=== PATIENT | male | born 1955 | race Caucasian/White ===

== ENCOUNTER → 2020-02-03 | Outpatient (CLI) | payer BC ==
--- NOTE | 2020-02-03 09:21 | XR ---
EXAMINATION TYPE: XR chest 2V DATE OF EXAM: 02/03/2020 COMPARISON: 03/03/2014 TECHNIQUE: PA and lateral views submitted. HISTORY: Chest pain FINDINGS: The lungs are clear and there is no pneumothorax, pleural effusion, or focal pneumonia. No overt fa ilure. Biapical pleural thickening. Reduced inspiration. Hypertrophic and degenerative change of the spine. IMPRESSION: 1. No acute process.
== END | disposition home or self-care (01) ==
LOC: RADXRMAIN 08:56
PROVIDERS: ATTEND Otolaryngology
DX: R07.89 Other chest pain (principal)
CPT/HCPCS: 71046

== ENCOUNTER 2020-12-14 10:32 | Day surgery (SDC) | payer BC ==
[2020-12-12 10:53] VITALS: BMI 28.7
[~2020-12-14 10:32] MED LIST: LACTATED RINGERS 1,000 ML IV SCH
[2020-12-14 11:10] VITALS: TEMP 98.1
[2020-12-14] MEDS ORDERED: LIDOCAINE 1% (10MG/ML) FOR IV START INTRADERMA ONE (11:11)
[2020-12-14] MEDS ORDERED: PROPOFOL 10 MG/ML 20 ML VIAL IV ONE (12:06)
[2020-12-14] MEDS ORDERED: GLYCOPYRROLATE 0.2 MG/ML 2 ML VIAL ONE (12:06)
[2020-12-14] MEDS ORDERED: LIDOCAINE 1% INJ 10MG/ML (20 ML MDV) ONE (12:06)
--- NOTE | 2020-12-14 12:28 | P.PCN ---
Date of Procedure: 12/14/20 Procedure(s) Performed: Brief history: Patient is a pleasant 65-year-old white male scheduled for an elective upper endoscopy as well as colonoscopy as a part of evaluation of GERD/screening for colorectal neoplasia. Procedure performed: Esophagogastroduodenoscopy with biopsy Colonoscopy Preoperative diagnosis: GERD Screening for colon cancer Anesthesia: MAC Procedure: After informed consent was obtained from the patient was brought into the endoscopy unit and IV sedation was administered by anesthesia under continuous monitoring. Initially upper endoscopy was done. The Olympus GF 160 video endoscope was inserted inserted into the mouth and esophagus intubated without any difficulty and was gradually advanced into the stomach and duodenum and carefully examined. The bulb and second part of the duodenum appeared normal. The scope was then withdrawn into the stomach adequately insufflated with air and upon careful examination the antrum and body, cardia and fundus appeared normal. The scope was then withdrawn into the esophagus. The GE junction was located at 40 cm to the incisors. It appeared regular with no erythema erosions or ulcerations. Rest of the esophagus appeared normal. Biopsies were done from the distal esophagus to rule out a reflux esophagitis Patient tolerated the procedure well. At this time the patient continued to remain sedation. Initial digital rectal examination was normal. Olympus CF 160 video colonoscope was then inserted into the rectum and gradually advanced to the cecum without any difficulty. Careful examination was performed as the scope was gradually being withdrawn. The prep was excellent. The cecum, ascending colon, transverse colon, descending colon, sigmoid colon and rectum appeared normal. At her sigmoid diverticulosis. Retroflexion was performed in the rectum and grade 2 internal hemorrhoids were noted. Patient tolerated the procedure well. Impression: 1. Upper endoscopy revealed normal-appearing esophagus with no evidence of esophagitis or gastritis 2. Colonoscopy revealed scattered sigmoid diverticulosis and grade 2 internal hemorrhoids Recommendations: Findings of this examination were discussed with the patient as well as his family. He was advised to continue his current medications. Follow with the biopsy results. Have a repeat screening colonoscopy in 10 years.
[2020-12-14 12:52] VITALS: BP 115/78; PULSE 55; RESP 18
== END 2020-12-14 13:06 | disposition home or self-care (01) ==
LOC: ORWHC2ENDO 10:32
PROVIDERS: ATTEND Internal Medicine Gastroenterology
DX: Z12.11 Encounter for screening for malignant neoplasm of colon (principal); K21.9 Gastro-esophageal reflux disease without esophagitis; K57.30 Diverticulosis of large intestine without perforation or abscess without bleeding; E78.5 Hyperlipidemia, unspecified; K64.1 Second degree hemorrhoids; Z79.899 Other long term (current) drug therapy
CPT/HCPCS: 88305; 43239; J2001; J2704; G0121

== ENCOUNTER 2021-01-30 07:44 | Day surgery (SDC) | payer BC ==
[~2021-01-30 07:44] MED LIST changes: +ALPRAZolam 0.25 MG TAB PO PRN; +ALPRAZolam 0.5 MG TAB PO PRN; +ASPIRIN 325 MG TAB PO STA; +ATORVASTATIN 80 MG TAB PO STA; +HEPARIN SODIUM,PORCINE 10,000 UNIT in SODIUM CHLORIDE 0.9% 1,000 ML IRRIGATION PRN; +HEPARIN SODIUM,PORCINE 2,500 UNIT in SODIUM CHLORIDE 0.9% 250 ML IRRIGATION PRN; -LACTATED RINGERS 1,000 ML IV SCH; +NITROGLYCERIN SL TABS 0.4 MG TAB SUBLINGUAL PRN; +SODIUM CHLORIDE 0.9% 1,000 ML in EMPTY BAG 1 BAG IV ONE
[2021-01-30] MEDS ORDERED: SODIUM CHLORIDE 0.9% 1,000 ML IV ONE (08:07)
[2021-01-30] MEDS ORDERED: LIDOCAINE 1% INJ 10MG/ML (20 ML MDV) ONE (08:25)
[2021-01-30] MEDS ORDERED: fentaNYL (PF) 50 MCG/ML 2 ML AMP ONE (08:26)
[2021-01-30] MEDS ORDERED: fentaNYL (PF) 50 MCG/ML 2 ML AMP IV ONE (08:54)
[2021-01-30] MEDS: MIDAZOLAM 2 MG/2 ML VIAL IV ONE ×2 (08:54→09:00)
[2021-01-30] MEDS ORDERED: LIDOCAINE 1% INJ 10MG/ML (20 ML MDV) SQ ONE (08:55)
[2021-01-30] MEDS ORDERED: HEPARIN SODIUM 1,000 UN/ML (10ML VL) ONE (09:19)
[2021-01-30] MEDS: HEPARIN SODIUM 1,000 UN/ML (10ML VL) IV ONE ×2 (09:20→09:33)
[2021-01-30] MEDS ORDERED: PRASUGREL 10 MG TAB ONE (09:22)
[2021-01-30] MEDS ORDERED: PRASUGREL 10 MG TAB PO ONE (09:30)
[2021-01-30] MEDS: NITROGLYCERIN 1000MCG/10ML SYRINGE INTRAARTER ONE ×2 (09:32→09:42)
[2021-01-30] MEDS ORDERED: IOPAMIDOL-370 125ML BTL INJ ONE (09:48)
[2021-01-30] MEDS ORDERED: IOPAMIDOL-370 100ML BTL INJ ONE (10:01)
--- NOTE | 2021-01-30 10:10 | CC ---
CARDIAC CATHETERIZATION REPORT PROCEDURE: Cardiac catheterization. REFERRING PHYSICIAN: Dr. María Horvath. INDICATION: Exertional shortness of breath with abnormal stress test showing ischemia in LAD distribution. PROCEDURE NOTE: Obtaining informed consent, left heart catheterization, coronary angiogram are performed via the right femoral artery using standard [place] catheters. Patient tolerated the procedure well without any obvious immediate complications. He received moderate conscious sedation. Total sedation time was 13 minutes. FINDINGS: HEMODYNAMICS: Left ventricular end-diastolic pressure is 8 to 12 mm. There is no gradient across the aortic valve. LEFT VENTRICULOGRAM: Left ventriculogram is not performed. ANGIOGRAPHIC DATA: The left main coronary artery: Left main coronary artery is a normal-sized vessel and is free of stenosis. Divides into left anterior descending coronary artery and circumflex coronary artery. LAD shows a focal area of stenosis involving the proximal LAD. There is a large caliber diagonal branch that comes off the distal end of this stenosis. Circumflex coronary artery is a dominant vessel and is free of significant disease. Right coronary artery is a small nondominant vessel and is free of significant disease. CONCLUSIONS: Severe single-vessel coronary artery disease as described above. PLAN: I am going to have Dr. Juarez, the on-call senior production manager, review the angiographic data and decide on whether to do catheter based revascularization or refer the patient for two-vessel bypass. MMODL / IJN: [id number] /
[2021-01-30] MEDS ORDERED: ATROPINE SULFATE 0.1 MG/ML 10ML SYRINGE IV PRN ×2 (10:31→11:35)
[2021-01-30] MEDS ORDERED: ZOLPIDEM 5 MG TAB PO PRN ×2 (10:31→11:35)
[2021-01-30] MEDS ORDERED: MAG HYDROX/AL HYDROX/SIMETH 30 ML CUP PO PRN ×2 (10:31→11:35)
[2021-01-30] MEDS ORDERED: RX INFO: IV CONTRAST WAS GIVEN 1 EACH MISC MISCELLANE PRN ×2 (10:31→11:35)
[2021-01-30] MEDS ORDERED: NITROGLYCERIN SL TABS 0.4 MG TAB SUBLINGUAL PRN ×2 (10:31→11:35)
[2021-01-30] MEDS ORDERED: SODIUM CHLORIDE 0.9% 1,000 ML IV SCH (11:45)
[2021-01-30] MEDS: SODIUM CHLORIDE 0.9% 1,000 ML IV SCH (13:07)
--- NOTE | 2021-01-30 13:25 | LTR ---
01/30/2021 RE: Marquis Merino Dear María: I performed cardiac catheterization on Marquis Merino. A detailed catheterization note is enclosed for your records. In brief, his cardiac catheterization revealed severe focal stenosis involving proximal LAD and patient will undergo angioplasty with stent placement of the same. Thank you for allowing me to participate in the care of this pleasant gentleman. Sincerely, MD GERALDO Veras / [place]: [id number] /
[2021-01-30 14:34] VITALS: BMI 26.9
--- NOTE | 2021-01-30 18:16 | P.PRCINT ---
Percutaneous Coronary Int. - Percutaneous Coronary Intervention Percutaneous Coronary Intervention: PROCEDURES PERFORMED: Left coronary angiography, PCI of proximal diagonal 1 with a 2.5 x 12mm Xience SARAH, PCI proximal LAD with a 3.0 x 15mm Xience SARAH, post dilated with a 4.0 NC balloon, Angioseal closure INDICATION: Abnormal stress test, FISH HISTORY: Patient is a pleasant 65 year old male with history of HTN, HLD who has been having increased FISH over the last 2-3 months with a stress test showing anterior ischemia. Patient had a diagnositic heart catheterization performed by Dr Akhtar which showed obstructive disease of diagonal 1 and proximal LAD and mild disease of circumflex and nondominant RCA. CONSENT:I have discussed the risks, benefits and alternative therapies for the above-mentioned procedure and for both sedation/analgesia as well as necessary blood product administration, if indicated, as they pertain to this patient. The patient has indicated understanding and acceptance of the risks and procedures discussed. PROCEDURE: After the risks, benefits and alternatives of the above mentioned procedure explained in detail with the patient, informed consent was obtained. Patient had already been taken to the catheterization lab and prepped and draped in usual fashion. A 6-Hebrew sheath had already been placed in the right femoral artery. The decision was made to perform PCI of LAD and diagonal 1 branch. A 6Fr CLS 4.0 guide catheter was used to engage the left main. A 0.014 wire was placed in the distal LAD and a second 0.014 BMW in the distal diagonal 1 branch. Balloon angioplasty was performed of the diagonal 1 branch and proximal LAD lesion with a 2.25 x 12mm balloon. Next a 2.5 x 12mm Xience SARAH was placed in the proximal diagonal 1 with approximately 1-2mm distal to the origin which seemed to only have mild disease. Next balloon angioplasty was performed of the proximal LAD with a 2.75 x 12mm balloon. Next a 3.0 x 15mm Xience SARAH was placed in the proximal LAD, overlapping the diagonal 1 branch however without any impingement of the diagonal 1 branch. Next the proximal portion of the LAD stent was post dilated with a 4.0 x 8mm NC balloon. Final angiograms were performed. Pre intervention there was a 80% diagonal 1 stenosis and 95% LAD stenosis with JOSE 3 flow in both and post intervention there was 0% LAD stenosis and < 10% residual diagonal 1 stenosis without any dissection. Right femoral angiogram showed anatomy adequate for closure device and a 6Fr Angioseal was placed with hemostasis achieved. The patient tolerated the procedure well. Patient was transported back to the post catheterization holding area in stable condition. Conscious Sedation: Patient was monitored under the direct supervision of vision of myself for conscious sedation using Versed and fentanyl for a total duration of 44 minutes HEMODYNAMICS: Ao: 142/78 SELECTIVE CORONARY ARTERIOGRAPHY: LEFT MAIN: The left main is a large caliber vessel which bifurcates into the LAD and circumflex. There is no significant stenosis. LEFT ANTERIOR DESCENDING CORONARY ARTERY: LAD is a large caliber vessel which wraps around to the apex. There is a proximal 95% LAD stenosis and a proximal diagonal 1 80% stenosis. Otherwise there are mild luminal irregularities. LEFT CIRCUMFLEX CORONARY ARTERY: Left circumflex is a large caliber vessel with mild luminal irregularities. It is the dominant vessel. RIGHT CORONARY ARTERY: The right coronary artery was not imaged however was nondominant. FINAL IMPRESSION: 1. CAD as described above with 95% LAD and 80% diagonal 1 stenosis, s/p PCI of proximal diagonal 1 with a 2.5 x 12mm Xience SARAH, PCI proximal LAD with a 3.0 x 15mm Xience SARAH, post dilated with a 4.0 NC balloon PLAN: 1. Aggressive risk factor modification per most recent ACC/AHA guidelines. 2. Continue dual antiplatelets for 12 months.
[2021-01-30] MEDS ORDERED: ATORVASTATIN 40 MG TAB PO SCH (21:00)
[2021-01-31] MEDS: SODIUM CHLORIDE 0.9% 1,000 ML IV SCH (01:28)
[2021-01-31 07:20] LABS: African American GFR (CKD) >90 (>60 ml/min/1.73 sqM); Non-African American GFR(CKD) >90 (>60 ml/min/1.73 sqM)
[2021-01-31 07:21] LABS: African American GFR (CKD) >90 (>60 ml/min/1.73 sqM); Anion Gap 5 mmol/L; Basophils % (A) 1 %; Blood Urea Nitrogen 10 mg/dL (9-20); Calcium 8.9 mg/dL (8.4-10.2); Carbon Dioxide 27 mmol/L (22-30); Chloride 107 mmol/L (98-107); Eosinophils # (A) 0.2 k/uL (0-0.7); Eosinophils % (A) 3 %; Glucose 99 mg/dL (74-99); HCT 45.2 % (39.0-53.0); HGB 15.8 gm/dL (13.0-17.5); Lymphocytes # (A) 1.1 k/uL (1.0-4.8); Lymphocytes % (A) 19 %; MCH 31.4 pg (25.0-35.0); MCHC 35.1 g/dL (31.0-37.0); MCV 89.4 fL (80.0-100.0); Mean Platelet Volume 7.9; Monocytes # (A) 0.4 k/uL (0-1.0); Monocytes % (A) 7 %; Neutrophils % (A) 69 %; Non-African American GFR(CKD) >90 (>60 ml/min/1.73 sqM); Platelet Count 154 k/uL (150-450); Potassium 4.2 mmol/L (3.5-5.1); RBC 5.05 m/uL (4.30-5.90); RDW 12.5 % (11.5-15.5); Sodium 139 mmol/L (137-145); WBC 5.8 k/uL (3.8-10.6)
[2021-01-31] MEDS ORDERED: PANTOPRAZOLE 40 MG TABLET PO SCH (07:30)
[2021-01-31 08:01] VITALS: BP 164/83; PULSE 50; RESP 17; TEMP 97.9
[2021-01-31] MEDS ORDERED: METOPROLOL SUCCINATE (ER) 25 MG TAB.ER.24H PO SCH (09:00)
[2021-01-31] MEDS ORDERED: PRASUGREL 10 MG TAB PO SCH (09:00)
[2021-01-31] MEDS ORDERED: ISOSORBIDE MONONITRATE ER 30 MG TAB.ER.24H PO SCH (09:00)
[2021-01-31] MEDS ORDERED: ASPIRIN 81 MG PO SCH (09:00)
--- NOTE | 2021-01-31 09:52 | DS ---
DISCHARGE SUMMARY DATE OF ADMISSION: 01/30/2021 DATE OF DISCHARGE: 01/31/2021 PROCEDURES PERFORMED: 1. Left heart catheterization with coronary angiogram. 2. Angioplasty with stent placement of LAD and diagonal branch. HISTORY OF PRESENT ILLNESS: This is a 65-year-old gentleman who presented to me with chest pain and abnormal stress test and was advised to undergo cardiac catheterization. His cardiac catheterization revealed severe focal stenosis involving proximal LAD and diagonal branch. He went on to have angioplasty with stent placement of the same with a drug-eluting stent. He has had an uneventful stay in the hospital. Did not have any chest pain, difficulty in breathing, or palpitations. His blood pressure is somewhat poorly controlled this morning, but has been well controlled prior to that. His groin shows mild tenderness, but there are no pulsatile masses. No bruit. No ecchymoses. Foot pulses are intact. LABS: Reveal a hemoglobin of 15.8, platelet count is 154. Potassium is 4.2 and creatinine is 0.73. DISCHARGE MEDICATIONS: Aspirin, Imdur 30 mg daily, Lipitor 20 mg daily, Toprol-XL 25 mg daily, Effient 10 mg daily and Prilosec along with sublingual nitroglycerin. FOLLOWUP: Patient will be followed up by me next week. He will stay off work until that time and we will decide on letting him return to work at that time. MMLAZAROL / IJN: [id number] /
== END 2021-01-31 11:08 | disposition home or self-care (01) ==
LOC: CATHCVL 07:44 → 6NMEDSUR 12:35 → CATHCVL 01-31 11:08
PROVIDERS: ATTEND Internal Medicine Cardiovascular Disease
DX: I25.10 Atherosclerotic heart disease of native coronary artery without angina pectoris (principal); R94.39 Abnormal result of other cardiovascular function study; Z20.822 Contact with and (suspected) exposure to COVID-19; E78.5 Hyperlipidemia, unspecified; Z87.891 Personal history of nicotine dependence; Z79.899 Other long term (current) drug therapy; Z79.82 Long term (current) use of aspirin
CPT/HCPCS: 94760; 93458; 80048; 82565; 85025; 87635; C9600; C9601; C1769 ×3; C1760; C1887; C1725 ×3; C1894; C1874; J2250; J2001; J3010; J1644; Q9967 ×2

== ENCOUNTER → 2023-06-27 | Outpatient (CLI) | payer BC ==
[2023-06-27 12:45] LABS: Basophils # (A) 0.07 X 10*3/uL (0.00-0.10); Eosinophils % (A) 4.3 %; HCT 47.5 % (39.6-50.0); HGB 16.4 d/dL (13.0-17.0); Lymphocytes # (A) 1.52 X 10*3/uL (0.90-5.00); Lymphocytes % (A) 21.7 %; MCH 30.2 pg (27.0-32.0); MCHC 34.5 d/dL (32.0-37.0); MCV 87.5 FL (80.0-97.0); Mean Platelet Volume 10.2 FL (9.5-12.2); Monocytes # (A) 0.59 X 10*3/uL (0.20-1.00); Monocytes % (A) 8.4 %; NRBC Per 100 WBC 0 X 10*3/uL (0.00-0.01); Neutrophils # (A) 4.52 X 10*3/uL (1.80-7.70); Neutrophils % (A) 64.3 %; Platelet Count 178 X 10*3/uL (140-440); RBC 5.43 X 10*6/uL (4.40-5.60); RDW 12.8 % (11.5-14.5); WBC 7.02 X 10*3/uL (4.50-10.00)
[2023-06-27 14:19] LABS: ALT 24 U/L (10-49); AST 25 U/L (14-35); Albumin 4.5 d/dL (3.8-4.9); Albumin/Globulin Ratio 1.88 Ratio (1.60-3.17); Alkaline Phosphatase 88 U/L (41-126); BUN/Creat Ratio 14.62 Ratio (12.00-20.00); Blood Urea Nitrogen 11.7 mg/dL (9.0-27.0); Calcium 9.6 mg/dL (8.7-10.3); Carbon Dioxide 27.3 mmol/L (21.6-31.8); Chloride 103 mmol/L (96-109); Chol/HDL Ratio 3.75 Ratio; Globulin 2.4 d/dL (1.6-3.3); Glucose 86 mg/dL (70-110); LDL Cholesterol,Calculated 63.9 mg/dL (0.0-131.0); Potassium 4.7 mmol/L (3.5-5.5); Sodium 140 mmol/L (135-145); Total Bilirubin 1.5 mg/dL (0.3-1.2); Total Protein 6.9 d/dL (6.2-8.2)
== END | disposition home or self-care (01) ==
LOC: LABWHC1 08:59
PROVIDERS: ATTEND Internal Medicine Cardiovascular Disease
DX: I25.10 Atherosclerotic heart disease of native coronary artery without angina pectoris (principal); E78.2 Mixed hyperlipidemia
CPT/HCPCS: 36415; 80053; 80061; 85025

== ENCOUNTER → 2023-07-31 | Outpatient (CLI) | payer BC ==
--- NOTE | 2023-07-31 12:26 | US ---
EXAMINATION TYPE: US abdomen complete DATE OF EXAM: 07/31/2023 COMPARISON: None CLINICAL INDICATION: Male, 67 years old with history of E80.6 OTHER DISORDERS OF BILIRUBIN METABOLISM ; Elevated labs TECHNIQUE: Multiple sonographic images of the abdomen are obtained. FINDINGS: EXAM MEASUREMENTS: Liver Length: 13.4 cm Gallbladder Wall: 0.2 cm CBD: 0.6 cm Spleen: 12.3 cm Right Kidney: 11.1 x 5.8 x 6.6 cm Left Kidney: 11.9 x 6.3 x 5.2 cm Pancreas: wnl Liver: Heterogeneous and echogenic. No focal lesion is seen. Gallbladder: There is a phrygian cap. Small 4 mm shadowing gallstone at the fundus of the gallbladde r. No abnormal distention, wall thickening, or surrounding fluid. Evidence for sonographic Dickinson's sign: No CBDNo wnl Swnlen: wnl wnlght Kidney: wnl wnlft Kidney: wnl wnlper IVC: wnl wnl Aorta: wnl IMPRESSION: 1. At least moderate hepatic steatosis. Appropriate clinical management is advised. 2. Tiny 4 mm gallstone. 3. Bile duct borderline in caliber at 6 mm, acceptable given patient's age. Correlate with alkaline p hosphatase and bilirubin levels.
== END | disposition home or self-care (01) ==
LOC: RADUSWWP 06:46
PROVIDERS: ATTEND Internal Medicine
DX: K76.0 Fatty (change of) liver, not elsewhere classified (principal); E80.6 Other disorders of bilirubin metabolism; K80.20 Calculus of gallbladder without cholecystitis without obstruction
CPT/HCPCS: 76700

== ENCOUNTER → 2024-02-18 | Outpatient (CLI) | payer BC | END | disposition home or self-care (01) | LOC: LABWHC1 16:19 | PROVIDERS: ATTEND Internal Medicine Cardiovascular Disease | DX: Z53.9 Procedure and treatment not carried out, unspecified reason (principal) ==

== ENCOUNTER → 2024-07-30 | Outpatient (CLI) | payer BC ==
[2024-07-30 13:44] LABS: ALT 24 U/L (10-49); AST 26 U/L (14-35); Albumin 4.5 g/dL (3.8-4.9); Alkaline Phosphatase 88 U/L (41-126); Calcium 9.4 mg/dL (8.7-10.3); Carbon Dioxide 27.3 mmol/L (21.6-31.8); Chloride 103 mmol/L (96-109); Chol/HDL Ratio 3.55 Ratio; Globulin 2.5 g/dL (1.6-3.3); Glucose 97 mg/dL (70-110); LDL Cholesterol,Calculated 70.4 mg/dL (0.0-131.0); Potassium 4.6 mmol/L (3.5-5.5); Sodium 139 mmol/L (135-145); Total Bilirubin 1.5 mg/dL (0.3-1.2)
[2024-07-30 16:29] LABS: Basophils # (A) 0.05 X 10*3/uL (0.00-0.10); Basophils % (A) 0.8 %; Eosinophils # (A) 0.23 X 10*3/uL (0.04-0.35); Eosinophils % (A) 3.7 %; HCT 46.8 % (39.6-50.0); Lymphocytes # (A) 1.64 X 10*3/uL (0.90-5.00); Lymphocytes % (A) 26.6 %; MCHC 34.2 g/dL (32.0-37.0); MCV 87.6 FL (80.0-97.0); Mean Platelet Volume 10.7 FL (9.5-12.2); Monocytes # (A) 0.57 X 10*3/uL (0.20-1.00); Monocytes % (A) 9.2 %; NRBC Per 100 WBC 0 X 10*3/uL (0.00-0.01); Neutrophils # (A) 3.66 X 10*3/uL (1.80-7.70); Neutrophils % (A) 59.4 %; Platelet Count 204 X 10*3/uL (140-440); RBC 5.34 X 10*6/uL (4.40-5.60); RDW 12.5 % (11.5-14.5); WBC 6.17 X 10*3/uL (4.50-10.00)
== END | disposition home or self-care (01) ==
LOC: LABWHC1 08:05
PROVIDERS: ATTEND Internal Medicine Cardiovascular Disease
DX: E78.2 Mixed hyperlipidemia (principal); K76.0 Fatty (change of) liver, not elsewhere classified
CPT/HCPCS: 36415; 80053; 80061; 85025

== ENCOUNTER 2024-09-22 15:15 | Observation (INO) | payer BC, MEDICARE ==
[2024-09-22 16:27] LABS: Basophils # (A) 0.1 k/uL (0-0.2); Basophils % (A) 1 %; Eosinophils # (A) 0.3 k/uL (0-0.7); Eosinophils % (A) 5 %; HCT 44.1 % (39.0-53.0); HGB 15.1 gm/dL (13.0-17.5); Lymphocytes # (A) 1.9 k/uL (1.0-4.8); Lymphocytes % (A) 30 %; MCH 31.1 pg (25.0-35.0); MCHC 34.3 g/dL (31.0-37.0); MCV 90.6 fL (80.0-100.0); Mean Platelet Volume 8.2; Monocytes # (A) 0.4 k/uL (0-1.0); Monocytes % (A) 6 %; Neutrophils # (A) 3.5 k/uL (1.3-7.7); Neutrophils % (A) 57 %; Platelet Count 174 k/uL (150-450); RBC 4.87 m/uL (4.30-5.90); RDW 13.7 % (11.5-15.5); WBC 6.2 k/uL (3.8-10.6)
[2024-09-22 16:39] LABS: ALT 27 U/L (4-49); AST 24 U/L (17-59); African American GFR (CKD) >90 (>60 ml/min/1.73 sqM); Albumin 4.5 g/dL (3.5-5.0); Alkaline Phosphatase 95 U/L (38-126); Anion Gap 10 mmol/L; Blood Urea Nitrogen 12 mg/dL (9-20); Calcium 9.4 mg/dL (8.4-10.2); Carbon Dioxide 28 mmol/L (22-30); Chloride 100 mmol/L (98-107); Creatine Kinase 52 U/L (55-170); Glucose 138 mg/dL (74-99); Non-African American GFR(CKD) >90 (>60 ml/min/1.73 sqM); Potassium 4.2 mmol/L (3.5-5.1); Sodium 138 mmol/L (137-145); Total Bilirubin 1.5 mg/dL (0.2-1.3); Total Protein 7.2 g/dL (6.3-8.2)
--- NOTE | 2024-09-22 16:47 | XR ---
EXAMINATION TYPE: XR chest 2V DATE OF EXAM: 09/22/2024 4:31 PM COMPARISON: 10/21/22 CLINICAL INDICATION: Male, 68 years old with history of altered mental status,Pt sent from Dr Pedro 's office for L side numbness/weakness since Thursday and dilated, fixed R pupil. reports speech i s off. Pt states he had shingles one month ago and thought that may have triggered current sx. TECHNIQUE: XR chest 2V view(s) obtained. FINDINGS: The heart size is normal. The pulmonary vasculature is normal. The lungs are clear. IMPRESSION: 1. No acute pulmonary process. [facility], Workstation: [facility], 09/22/2024 4:44 PM
[2024-09-22 17:05] LABS: INR 0.9 (<1.2); Partial Thromboplastin Time 26.5 sec (22.0-30.0); Prothrombin Time 10.3 sec (10.0-12.5)
--- NOTE | 2024-09-22 17:25 | ED ---
General Adult HPI - General Chief complaint: Neuro Symptoms/Deficit Stated complaint: Left Side Numb/ Eye Dialated Time Seen by Provider: 09/22/24 15:30 Source: patient, family, RN/MD Mode of arrival: wheelchair Limitations: no limitations - History of Present Illness Initial comments: 68-year-old male with past medical history of vocal cord cancer, bladder cancer who presents to the emergency department reporting left-sided numbness and left- sided weakness. Patient reports that on Thursday he started having numbness and tingling in his left arm, left leg and left side of his face. He has been dropping things. 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 He has been calling his primary care doctor but did not receive a call back. Today his primary care called him back and told him to immediately get to the hospital. He denies history of stroke. does feel that his speech has changed a bit. Patient denies headache. He does have dilation of his right pupil. Admits that 8 weeks ago he had shingles in the right eye. He has been following up with an atg architect to states that his symptoms are improving. He is currently on acyclovir and prednisone eyedrops. Patient does not take any blood thinners. Denies any additional symptoms to include chest pain, shortness of breath, nausea, vomiting. No other alleviating, precipitating roughing factors - Related Data Home Medications Medication Instructions Recorded Confirmed Omeprazole [PriLOSEC] 20 mg PO DAILY 12/12/20 09/22/24 Metoprolol Succinate (ER) [Toprol 25 mg PO DAILY 01/30/21 09/22/24 Xl] Acyclovir [Zovirax] 800 mg PO BID 09/22/24 09/22/24 Atorvastatin [Lipitor] 40 mg PO DAILY 09/22/24 09/22/24 Ipratropium [place] [Ipratropium 2 spray NASAL TID 09/22/24 09/22/24 [place] 0.03%] Pregabalin [Lyrica] 75 mg PO BID PRN 09/22/24 09/22/24 Sildenafil Citrate 50 mg PO DAILY PRN 09/22/24 09/22/24 prednisoLONE acetate [Pred Mild] 1 drop RIGHT EYE QID 09/22/24 09/22/24 Allergies Allergy/AdvReac Type Severity Reaction Status Date / Time No Known Allergies Allergy Verified 09/22/24 17:51 Review of Systems ROS Statement: Those systems with pertinent positive or pertinent negative responses have been documented in the HPI. ROS Other: All systems not noted in ROS Statement are negative. Past Medical History Past Medical History: Cancer, GERD/Reflux, Hyperlipidemia Additional Past Medical History / Comment(s): VOCAL CORD CANCER, BLADDER CANCER. shortness of breath History of Any Multi-Drug Resistant Organisms: None Reported Past Surgical History: Bladder Surgery Additional Past Surgical History / Comment(s): VOCAL CORD SURGERY-TUMORS REMOVED ,COLONOSCOPY Past Anesthesia/Blood Transfusion Reactions: No Reported Reaction Past Psychological History: No Psychological Hx Reported Smoking Status: Former smoker Past Alcohol Use History: Occasional Past Drug Use History: None Reported - Past Family History Mother Family Medical History: No Reported History General Exam Limitations: no limitations Course Vital Signs 09/22/24 15:24 Temperature 98.1 F Pulse Rate 50 L Respiratory 18 Rate Blood Pressure 152/75 O2 Sat by Pulse 99 Oximetry Medical Decision Making - Medical Decision Making Was pt. sent in by a medical professional or institution (, PA, INFANTRY INDIRECT FIRE CREWMEMBER, urgent care, hospital, or senior care...) When possible be specific @ -[No] Did you speak to anyone other than the patient for history (EMS, parent, family, police, friend...)? What history was obtained from this source @ -[No] Did you review nursing and triage notes (agree or disagree)? Why? @ -[I reviewed and agree with nursing and triage notes] Were old charts reviewed (outside hosp., previous admission, EMS record, old EKG, old radiological studies, urgent care reports/EKG's, senior care records)? Report findings @ -[No old charts were reviewed] Differential Diagnosis (chest pain, altered mental status, abdominal pain women, abdominal pain men, vaginal bleeding, weakness, fever, dyspnea, syncope, headache, dizziness, GI bleed, back pain, seizure, CVA, palpatations, mental health, musculoskeletal)? @ -[not applicable] EKG interpreted by me (3pts min.). @ -Yes and demonstrates sinus bradycardia 57. HI interval 230. QRS 114. QTc of 433. No acute ST segment elevations or depressions. Some PVCs X-rays interpreted by me (1pt min.). @ -[None done] CT interpreted by me (1pt min.). @ -[None done] U/S interpreted by me (1pt. min.). @ -[None done] What testing was considered but not performed or refused? (CT, X-rays, U/S, labs)? Why? @ -[None] What meds were considered but not given or refused? Why? @ -[None] Did you discuss the management of the patient with other professionals (professionals i.e. , PA, INFANTRY INDIRECT FIRE CREWMEMBER, lab, RT, psych nurse, social human services assistants, milk driver, teacher, community service patrol officer, case finisher)? Give summary @ -[No] Was smoking cessation discussed for >3mins.? @ -[No] Was critical care preformed (if so, how long)? @ -[No] Were there social determinants of health that impacted care today? How? (Homelessness, low income, unemployed, alcoholism, drug addiction, handley sportation, low edu. Level, literacy, decrease access to med. care, care home, rehab)? @ -[No] Was there de-escalation of care discussed even if they declined (Discuss DNR or withdrawal of care, Hospice)? DNR status @ -[No] What co-morbidities impacted this encounter? (DM, HTN, Smoking, COPD, CAD, Canc er, CVA, ARF, Chemo, Hep., AIDS, mental health diagnosis, sleep apnea, morbid obesity)? @ -[None] Was patient admitted / discharged? Hospital course, mention meds given and route, prescriptions, significant lab abnormalities, going to OR and other pertinent info. @ -[hospital course] Undiagnosed new problem with uncertain prognosis? @ -[No] Drug Therapy requiring intensive monitoring for toxicity (Heparin, Nitro, Insulin, Cardizem)? @ -[No] Were any procedures done? @ -[No] Diagnosis/symptom? @ -[default] Acute, or Chronic, or Acute on Chronic? @ -[default] Uncomplicated (without systemic symptoms) or Complicated (systemic symptoms)? @ -[default] Side effects of treatment? @ -[No] Exacerbation, Progression, or Severe Exacerbation? @ -[No] Poses a threat to life or bodily function? How? (Chest pain, [place], GA, pneumonia, PE, COPD, DKA, ARF, appy, cholecystitis, CVA, Diverticulitis, Homicidal, Suicidal, threat to staff... and all critical care pts) @ -[No] - Lab Data Result diagrams: 09/22/24 16:05 09/22/24 16:05 Lab Results 09/22/24 09/22/24 09/22/24 Range/Units 16:05 16:05 16:05 WBC 6.2 (3.8-10.6) k/uL RBC 4.87 (4.30-5.90) m/uL Hgb 15.1 (13.0-17.5) gm/dL Hct 44.1 (39.0-53.0) % MCV 90.6 (80.0-100.0) fL MCH 31.1 (25.0-35.0) pg MCHC 34.3 (31.0-37.0) g/dL RDW 13.7 (11.5-15.5) % Plt Count 174 (150-450) k/uL MPV 8.2 Neutrophils % 57 % Lymphocytes % 30 % Monocytes % 6 % Eosinophils % 5 % Basophils % 1 % Neutrophils # 3.5 (1.3-7.7) k/uL Lymphocytes # 1.9 (1.0-4.8) k/uL Monocytes # 0.4 (0-1.0) k/uL Eosinophils # 0.3 (0-0.7) k/uL Basophils # 0.1 (0-0.2) k/uL PT 10.3 (10.0-12.5) sec INR 0.9 (<1.2) APTT 26.5 (22.0-30.0) sec Sodium 138 (137-145) mmol/L Potassium 4.2 (3.5-5.1) mmol/L Chloride 100 (98-107) mmol/L Carbon Dioxide 28 (22-30) mmol/L Anion Gap 10 mmol/L BUN 12 (9-20) mg/dL Creatinine 0.74 (0.66-1.25) mg/dL Est GFR (CKD-EPI)AfAm >90 (>60 ml/min/1.73 sqM) Est GFR (CKD-EPI)NonAf >90 (>60 ml/min/1.73 sqM) Glucose 138 H (74-99) mg/dL Calcium 9.4 (8.4-10.2) mg/dL Total Bilirubin 1.5 H (0.2-1.3) mg/dL AST 24 (17-59) U/L ALT 27 (4-49) U/L Alkaline Phosphatase 95 (38-126) U/L Creatine Kinase 52 L (55-170) U/L Troponin I (0.000-0.034) ng/mL Total Protein 7.2 (6.3-8.2) g/dL Albumin 4.5 (3.5-5.0) g/dL 09/22/24 Range/Units 16:05 WBC (3.8-10.6) k/uL RBC (4.30-5.90) m/uL Hgb (13.0-17.5) gm/dL Hct (39.0-53.0) % MCV (80.0-100.0) fL MCH (25.0-35.0) pg MCHC (31.0-37.0) g/dL RDW (11.5-15.5) % Plt Count (150-450) k/uL MPV Neutrophils % % Lymphocytes % % Monocytes % % Eosinophils % % Basophils % % Neutrophils # (1.3-7.7) k/uL Lymphocytes # (1.0-4.8) k/uL Monocytes # (0-1.0) k/uL Eosinophils # (0-0.7) k/uL Basophils # (0-0.2) k/uL PT (10.0-12.5) sec INR (<1.2) APTT (22.0-30.0) sec Sodium (137-145) mmol/L Potassium (3.5-5.1) mmol/L Chloride (98-107) mmol/L Carbon Dioxide (22-30) mmol/L Anion Gap mmol/L BUN (9-20) mg/dL Creatinine (0.66-1.25) mg/dL Est GFR (CKD-EPI)AfAm (>60 ml/min/1.73 sqM) Est GFR (CKD-EPI)NonAf (>60 ml/min/1.73 sqM) Glucose (74-99) mg/dL Calcium (8.4-10.2) mg/dL Total Bilirubin (0.2-1.3) mg/dL AST (17-59) U/L ALT (4-49) U/L Alkaline Phosphatase (38-126) U/L Creatine Kinase (55-170) U/L Troponin I <0.012 (0.000-0.034) ng/mL Total Protein (6.3-8.2) g/dL Albumin (3.5-5.0) g/dL Disposition Clinical Impression: Left-sided weakness, Facial paresthesia, Cerebrovascular accident (CVA) Disposition: ADMITTED IP TO THIS [facility] Condition: Stable Is patient prescribed a controlled substance at d/c from ED?: No Referrals: Tucker Cordoba MD [Primary Care Provider] - 1-2 days Time of Disposition: 19:02 Decision to Admit Reason: Admit from EC Decision Date: 09/22/24 Decision Time: 19:02
--- NOTE | 2024-09-22 17:47 | CT ---
EXAMINATION TYPE: CT brain wo con DATE OF EXAM: 09/22/2024 5:42 PM COMPARISON: None. CLINICAL INDICATION: Male, 68 years old with history of Neuro deficit, acute, stroke suspected, Left side weakness/numbness, right pupil dilation x 3 days TECHNIQUE: CT of the brain is performed utilizing 3 mm thick sections through the posterior fossa and 3 mm thick sections through the remaining calvarium. Study is performed within 24 hours of arrival to the hospital. Contrast used: mL of , (none if empty) CT DLP: 1713.4 mGycm, Automated exposure control for dose reduction was used. FINDINGS: No abnormal hyperdensity is present to suggest an acute intracranial hemorrhage. No mass lesion is evident. No acute infarcts are evident. Ventricles and sulci are appropriate for the patient age. Air-fluid levels are within the maxillary sinuses. Remaining paranasal sinuses are clear IMPRESSION: 1. No acute intracranial process. Follow up MRI can be performed as clinically indicated. 2. Clinical consideration for acute bilateral maxillary sinusitis. [facility], Workstation: [facility], 09/22/2024 5:44 PM
--- NOTE | 2024-09-22 18:30 | CT ---
EXAMINATION TYPE: CT angio head neck DATE OF EXAM: 09/22/2024 5:42 PM COMPARISON: None. CLINICAL INDICATION: Male, 68 years old with history of Neuro deficit, acute, stroke suspected, Left side weakness/numbness, right pupil dilation x 3 days TECHNIQUE: CTA scan is performed with axial images are obtained, coronal and sagittal reformatted hetal ges are reviewed. 3-D reconstructed images are created on an independent workstation and reviewed. [facility] images are reviewed. NASCET criteria was used in interpretation of this exam? Contrast used:65 mL of Isovue 370 without and with IV Contrast, (none if empty) Oral contrast used: (none if empty) CT DLP: 1713.4 mGycm, Automated exposure control for dose reduction was used. FINDINGS: Carotid/Vascular Structures: There is a 3 vessel arch. Common carotid arteries bifurcate into internal and external carotid arteries without significant mali w limiting stenosis. Vertebral arteries are codominant. Internal carotid arteries and vertebral arteries are patent to the skull base. Cervical of [place]: Vertebral basilar system appears normal. Posterior cerebral vasculature is unrema rkable. Internal carotid arteries bifurcate normally into A1 and M1 segments. A2 segments are normal. The anterior communicating artery is patent. Posterior communicating arteries are not identified. IMPRESSION: 1. No flow-limiting stenosis bilateral carotid bifurcations. 2. Normal [place] [facility] [place] [facility], Workstation: [id number], 09/22/2024 6:27 PM
[2024-09-22] MEDS ORDERED: NALOXONE 0.4 MG/ML 1 ML VIAL IV PRN (19:03)
[2024-09-22] MEDS ORDERED: NON FORMULARY DRUG (Sildenafil Citrate [Sildenafil Citrate] 50 MG Tablet) PO PRN (19:06)
[2024-09-22] MEDS: PREDNISOLONE ACETATE RIGHT EYE SCH (19:16)
[2024-09-22] MEDS: ATORVASTATIN 40 MG TAB PO SCH (19:20)
[2024-09-22] MEDS: ACYCLOVIR 800 MG TAB PO SCH (21:23)
[2024-09-22] MEDS: PREGABALIN 75 MG CAP PO PRN (23:14)
[2024-09-23 05:33] LABS: Basophils % (A) 1 %; Eosinophils # (A) 0.3 k/uL (0-0.7); Eosinophils % (A) 4 %; HCT 44.2 % (39.0-53.0); Lymphocytes # (A) 1.7 k/uL (1.0-4.8); Lymphocytes % (A) 26 %; MCH 30.6 pg (25.0-35.0); MCHC 33.9 g/dL (31.0-37.0); MCV 90.4 fL (80.0-100.0); Mean Platelet Volume 8.2; Monocytes # (A) 0.4 k/uL (0-1.0); Monocytes % (A) 6 %; Neutrophils % (A) 61 %; Platelet Count 164 k/uL (150-450); RBC 4.89 m/uL (4.30-5.90); RDW 13.8 % (11.5-15.5); WBC 6.5 k/uL (3.8-10.6)
[2024-09-23 05:45] LABS: African American GFR (CKD) >90 (>60 ml/min/1.73 sqM); Anion Gap 6 mmol/L; Blood Urea Nitrogen 9 mg/dL (9-20); Calcium 9.2 mg/dL (8.4-10.2); Carbon Dioxide 25 mmol/L (22-30); Chloride 105 mmol/L (98-107); Glucose 95 mg/dL (74-99); Non-African American GFR(CKD) >90 (>60 ml/min/1.73 sqM); Potassium 4.3 mmol/L (3.5-5.1); Sodium 136 mmol/L (137-145)
[2024-09-23] MEDS: IPRATROPIUM BROMIDE 0.06% NASAL SPRAY (15 ML) NASAL SCH (07:02)
[2024-09-23] MEDS: prednisoLONE ACETATE 1% OPHTH DROPS 5 ML BTL RIGHT EYE SCH (07:02)
[2024-09-23] MEDS: PANTOPRAZOLE 40 MG TABLET PO SCH (08:07)
[2024-09-23] MEDS: METOPROLOL SUCCINATE (ER) 25 MG TAB.ER.24H PO SCH (08:07)
--- NOTE | 2024-09-23 12:14 | P.CNNES ---
History of Present Illness Consult date: 09/23/24 Requesting physician: Ayala Mackenzie Reason for Consult: left sided weakness, left side paresthesia, suspect cva History of Present Illness: This is a 68-year-old gentleman who presented to the emergency department because of left-sided numbness tingling as well as some weakness since this past Thursday. Patient stated that he noticed numbness tingling over the left side involving upper and lower extremity as well as the face as well as he noted some weakness over the left upper and lower extremity. It seems that yesterday he was seen by an strategy specialist and they are concerned about a stroke so the patient was requested the patient to come to the hospital for further evaluation. It appears the patient has been trying to call his primary care doctor but did not receive a call back initially. Patient states that he has a history of shingles in July 2024 which affected the right side of the face and he is on acyclovir and prednisone. As a result of the shingles he has been having ongoing headache. He denies any history of stroke. 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 Patient has a history of coronary artery disease status post stent and he is on aspirin. Denies any A-fib to his knowledge. Some of the workup during this hospital visit consisted of: Reviewed the lab workup. CT of the head is reported as no acute intracranial process. I personally reviewed the CT and agree with report. CT angiography of the head and neck is reported as no flow-limiting stenosis bilateral carotid bifurcation. Normal [place]. Review of Systems As per HPI. Past Medical History Past Medical History: Cancer, GERD/Reflux, Hyperlipidemia Additional Past Medical History / Comment(s): VOCAL CORD CANCER, BLADDER CANCER. shortness of breath History of Any Multi-Drug Resistant Organisms: None Reported Past Surgical History: Bladder Surgery Additional Past Surgical History / Comment(s): VOCAL CORD SURGERY-TUMORS REMOVED ,COLONOSCOPY Past Anesthesia/Blood Transfusion Reactions: No Reported Reaction Past Psychological History: No Psychological Hx Reported Smoking Status: Former smoker Past Alcohol Use History: Occasional Past Drug Use History: None Reported - Past Family History Mother Family Medical History: No Reported History Medications and Allergies Home Medications Medication Instructions Recorded Confirmed Type Omeprazole [PriLOSEC] 20 mg PO DAILY 12/12/20 09/22/24 History Metoprolol Succinate (ER) [Toprol 25 mg PO DAILY 01/30/21 09/22/24 History Xl] Acyclovir [Zovirax] 800 mg PO BID 09/22/24 09/22/24 History Atorvastatin [Lipitor] 40 mg PO DAILY 09/22/24 09/22/24 History Ipratropium [place] [Ipratropium 2 spray NASAL TID 09/22/24 09/22/24 History [place] 0.03%] Pregabalin [Lyrica] 75 mg PO BID PRN 09/22/24 09/22/24 History Sildenafil Citrate 50 mg PO DAILY PRN 09/22/24 09/22/24 History prednisoLONE acetate [Pred Mild] 1 drop RIGHT EYE QID 09/22/24 09/22/24 History Allergies Allergy/AdvReac Type Severity Reaction Status Date / Time No Known Allergies Allergy Verified 09/22/24 17:51 Physical Examination - Vital Signs Vital Signs: Vital Signs Temp Pulse Resp BP Pulse Ox 09/23/24 11:02 61 18 127/71 97 09/23/24 09:04 65 17 140/85 95 09/23/24 08:09 98.1 F 64 18 148/86 97 09/23/24 06:00 53 L 18 141/75 95 09/23/24 02:00 44 L 17 135/83 95 09/22/24 22:00 44 L 17 155/80 97 09/22/24 19:16 55 L 16 158/84 99 09/22/24 15:24 98.1 F 50 L 18 152/75 99 Intake and Output 09/22/24 09/23/24 09/23/24 22:59 06:59 14:59 Other: Weight 86.183 kg GENERAL: The patient is lying in bed and is not in acute distress. NEUROLOGICAL: Higher mental function: The patient is awake, alert, oriented to self, place and time. Patient is following commands. No aphasia and no neglect. Cranial nerves: The pupils are round, right is 5-6mm and left is 3mm and react sindi to light. Right eye has ptosis and sclera is slightly erythematous with some mild edema of the right upper eyelid since Shingles per patient. Visual pinto are full to confrontation throughout. Extraocular movement is intact no nystagmus is noted. Facial sensation is normal to touch throughout. The facial strength is normal throughout. Hearing is normal bilaterally to hand rub. Tongue is midline and moved [id number] without any difficulty. No dysarthria is noted. Shoulder shrug is normal bilaterally. Motor: The strength is left hand email marketing executive is 4+ to 5-. Left lower extremity is 4+. Normal tone and bulk. Cerebellum: Normal finger to nose heel to floyd bilaterally. Sensation: Decrease sensation to touch over the left side. Reflexes (right/left): 2+ throughout. Plantars are downgoing bilaterally. Results - Laboratory Findings CBC and BMP: 09/23/24 05:14 09/23/24 05:14 Abnormal Lab Findings: Abnormal Labs 09/22/24 09/23/24 16:05 05:14 Sodium 136 L Creatinine 0.63 L Glucose 138 H Total Bilirubin 1.5 H Creatine Kinase 52 L Assessment and Plan Assessment: This is a 68-year-old left handed gentleman who present emergency department because of left paresthesia as well as weakness since this past Thursday. Likely subacute CVA with symptoms of left-sided paresthesia and weakness. Rule out brain mets especially with a history of cancer. No IV thrombolytic since the patient is outside the window and the risk outweigh the benefit. On examination patient had left upper lower extremity weakness with paresthesia on examination. History of bladder cancer status post resection History of vocal cancer status post radiation History of shingles affecting the right face in July 2024 Underlying history of coronary artery disease status post stent. Plan: Resume patient's home aspirin 81 mg. In addition I started the patient on Plavix 75 mg daily. Patient is on Lipitor 40 mg daily. I ordered MRI of the brain with and without and I feel this is likely stroke but will also rule out any brain mets especially with history of cancer If MRI of the brain is unremarkable for stroke then recommend discontinuing Plavix. I ordered a 2D echo, lipid panel, tsh Continue neurochecks Cardiac monitoring I consulted PT OT and FARE REGISTER REPAIRER For DVT prophylaxis I started the patient on subcu heparin 5000 every 12 hours Will defer the rest of the medical management to primary and other specialist Thank you for the consultation. Dr. Dunlap will resume neurology service tomorrow AM Time with Patient: Greater than 30
[2024-09-23] MEDS: CLOPIDOGREL 75 MG TAB PO SCH (13:24)
[2024-09-23] MEDS: ASPIRIN 81 MG PO SCH (13:24)
[2024-09-23] MEDS: HYDROcodone/APAP 5-325MG 1 EACH TAB PO PRN (14:43)
[2024-09-23 19:31] LABS: Chol/HDL Ratio 3.74 Ratio; LDL Cholesterol,Calculated 63.4 mg/dL (0.0-131.0)
[2024-09-23] MEDS: HEPARIN SODIUM,PORCINE 5,000 UNIT/ML 1 ML VIAL SQ SCH (22:56)
--- NOTE | 2024-09-24 10:31 | CA ---
Transthoracic Echo Report Name: Marquis Merino Age: 68 Gender: M : 1955 Exam Date: 09/24/2024 08:36 Exam Location: [place] [facility] Ht (in): 71 Wt (lb): 190 Ordering Physician: Abel Noble MD Attending/Referring Phys: Ground Equipment Mechanic Marlene Watkins RDCS Procedure CPT: Indications: stroke Cardiac Hx: 2 stents Technical Quality: Good Contrast 1: Agitated Saline Total Dose (mL): 9 Contrast 2: Total Dose (mL): MEASUREMENTS (Male / Female) Normal Values 2D ECHO LV Diastolic Diameter PLAX 4.3 cm 4.2 - 5.9 / 3.9 - 5.3 cm LV Systolic Diameter PLAX 3.1 cm IVS Diastolic Thickness 1.2 cm 0.6 - 1.0 / 0.6 - 0.9 cm LVPW Diastolic Thickness 1.3 cm 0.6 - 1.0 / 0.6 - 0.9 cm LV Relative Wall Thickness 0.6 RV Internal Dim ED PLAX 3.5 cm LA Systolic Diameter LX 3.8 cm 3.0 - 4.0 / 2.7 - 3.8 cm LV Diastolic Volume MOD BP 166.4 cm??? 67 - 155 / 56 - 104 cm??? LV Systolic Volume MOD BP 91.7 cm??? 22 - 58 / 19 - 49 cm??? LV Ejection Fraction MOD BP 44.9 % >= 55 % LV Cardiac Index MOD BP 2073.2 cm???/min???m??? LV Diastolic Volume MOD 4C 164.2 cm??? LV Systolic Volume MOD 4C 91.6 cm??? LV Ejection Fraction MOD 4C 44.2 % LV Cardiac Index MOD 4C 2016.7 cm???/min???m??? LV Diastolic Length 4C 8.5 cm LV Systolic Length 4C 7.2 cm LV Diastolic Volume MOD 2C 168.5 cm??? LV Systolic Volume MOD 2C 86.2 cm??? LV Ejection Fraction MOD 2C 48.9 % LV Cardiac Index MOD 2C 2284.9 cm???/min???m??? LV Diastolic Length 2C 8.5 cm LV Systolic Length 2C 7.8 cm LA Volume 75.1 cm??? 18 - 58 / 22 - 52 cm??? LA Volume Index 35.9 cm???/m??? 16 - 28 cm???/m??? M-MODE Aortic Root Diameter MM 4.1 cm AV Cusp Separation MM 2.6 cm DOPPLER AV Peak Velocity 100.6 cm/s AV Peak Gradient 4.0 mmHg MV Area PHT 3.4 cm??? Mitral E Point Velocity 76.4 cm/s Mitral A Point Velocity 70.0 cm/s Mitral E to A Ratio 1.1 MV Deceleration Time 225.6 ms TR Peak Velocity 225.0 cm/s TR Peak Gradient 20.3 mmHg Right Ventricular Systolic Press 24.3 mmHg FINDINGS Left Ventricle Left ventricular ejection fraction is estimated at 40-45 %. Left ventricular cavity size normal. Mildly increased septal wall thickness. Mildly increased left ventricular diastolic volume. Severely increased left ventricular systolic volume. Moderately decreased left ventricular ejection fraction. Right Ventricle Mild right ventricular dilatation. Right ventricular systolic pressure within normal limits. Right Atrium Normal right atrial size. No right atrial thrombus or mass seen. Left Atrium Moderately increased left atrial volume. Mildly increased left atrial area. No left atrial thrombus or mass present. Mitral Valve Elongation of the anterior mitral valve leaflet. No mitral stenosis, regurgitation or prolapse. Aortic Valve Trileaflet aortic valve. No aortic valve stenosis or regurgitation. Tricuspid Valve Structurally normal tricuspid valve. Mild tricuspid regurgitation. Pulmonic Valve Structurally normal pulmonic valve. Trace pulmonic regurgitation. Pericardium No pericardial effusion. Aorta Moderate aortic dilatation at the level of the sinuses of valsalva 41 mm CONCLUSIONS Diagnosis CVA with left-sided weakness LVH with mildly reduced systolic function ejection fraction of about 45% Left atrial enlargement No inter atrial shunting, [id number] Previewed by: Dr. Arturo Montiel MD (Electronically Signed) Final Date: 24 September 2024 10:30
--- NOTE | 2024-09-24 14:11 | MR ---
INDICATION: Patient age:Male; 68 years old; Reason for study: left sided weakness and numbness. cva and r/o mets; PHH. COMPARISON: CT brain 09/22/2024, CTA head and neck 09/22/2024. TECHNIQUE: Multi planar, multi sequence imaging was performed through the brain. The patient was then given 9 cc of Gadobutrol intravenously and multi planar, T1 fat-saturation images were obtained. FINDINGS: The huntley-white junctions, ventricular system, basal cisterns appear unremarkable. Age-appropriate cer ebral volume. Focus of restricted diffusion identified within the right thalamus consistent with acut e/subacute ischemia. There is corresponding T2/FLAIR hyperintensity. Intracranial arterial flow voids are maintained. Midline structures show no abnormality. The susceptibility weighted images do not re veal any evidence for micro-hemorrhage. After administration of gadolinium, no abnormal enhancement i s seen. The bone marrow signal is within normal limits. The globes are unremarkable. Moderate mucosal sinus disease involving the maxillary sinuses and ethmoid sinuses. IMPRESSION: 1. Acute/subacute ischemia within the right thalamus. 2. No evidence of intracranial mass or abnormal enhancement to suggest metastasis. 3. Moderate paranasal sinus disease. [facility], , 09/24/2024 2:08 PM
--- NOTE | 2024-09-24 15:58 | P.PN ---
Subjective Progress Note Date: 09/24/24 The patient is a 68-year-old male who was seen in neurologic follow-up on September 24, 2024, in cross coverage for Dr. Noble, in collaboration with Holly Aquino, via teleneurology. For complete history please see Dr. Noble's original consultation The chart has been reviewed. This morning, the patient reports that he is having a lot of pain. He says he has this quite severe headache on the right side of his head. He says it is very tender to touch the right side of his head. Patient does have a recent history of shingles involving his right face as well as right eye. He has been seeing an carding utility tender who has been treating with shingles involving his eye. He is taking acyclovir and has been taking it since early July. The patient also is taking pregabalin 75 mg twice daily, for neuropathic pain. Patient reports that his pain is debilitating. For this admission, the patient came into the emergency department because of paresthesias that occurred suddenly, Thursday, while he was at work. He says that it is a painful, numbness and tingling involving his left arm, chest, back, abdomen and leg. He also notices this abnormal sensation involving his left buttock. In addition to the paresthesias, the patient reports a cold sensation. Patient says that he has difficulty picking things up and holding onto them with his left hand. The patient is left-hand dominant. He does not believe he has left-sided weakness. The patient does report that he was able to get up and walk to the bathroom without assistance. Patient is scheduled to have an MRI of the brain today. Objective - Vital Signs Vital signs: Vital Signs Temp 98.2 F 09/24/24 12:39 Pulse 56 L 09/24/24 12:39 Resp 16 09/24/24 12:39 BP 153/66 09/24/24 12:39 Pulse Ox 98 09/24/24 12:39 FiO2 Intake & Output 09/23/24 09/24/24 09/24/24 18:59 06:59 18:59 Intake Total 480 1320 Balance 480 1320 Weight 86.183 kg 83 kg Intake: Oral 480 1320 Other: Voiding Method Toilet # Voids 1 5 # Bowel Movements 1 - Exam General: The patient is reclining in the bed. He is well-nourished, well- developed and in mild distress. HEENT: Head is atraumatic, normocephalic. Fundus not visualized. There is no scleral icterus. Mucous membranes are moist. Neck: Supple without carotid bruits Heart: Regular rate and rhythm Extremities: Without edema Neurological examination Mental status: The patient is awake, alert and oriented x 3. His speech is clear. There is no dysarthria or aphasia. Cranial nerves: Pupils are equal at 3 mm and reactive. Visual pinto are full to confrontation. Extraocular movements are intact. There is no nystagmus. Facial sensation is intact. There is no facial asymmetry. Hearing is grossly intact. Uvula and palate are midline. Shoulder shrug is symmetric. Tongue protrudes midline. Motor: Strength (R/L): National Investigative Producer 5/4. Triceps 5/4. Biceps 5/4. Hip flexors 5/4. Ankle dorsiflexors 5/5. Ankle plantar flexors 5/4. Coordination: [id number] testing is intact. There is no pronator drift. There is mild slowing of left-sided rapid alternating movements. Deep tendon reflexes: 2+/4+ throughout Gait: Not assessed - Labs CBC & Chem 7: 09/23/24 05:14 09/23/24 05:14 Labs: Abnormal Lab Results - Last 24 Hours (Table) 09/23/24 Range/Units 05:14 Triglycerides 203.00 H (0.00-149.00) mg/dL VLDL Cholesterol, Calc 40.60 H (5.00-40.00) mg/dL HDL Cholesterol 38.00 L (40.00-60.00) mg/dL Assessment and Plan Assessment: 1. Sudden onset left-sided paresthesias and weakness consistent with the patient's MRI reporting an acute right thalamic infarct 2. Recent history of shingles, with postherpetic neuralgia 3. History of vocal cord cancer 4. History of bladder cancer Plan: 1. Dual antiplatelet therapy consisting of aspirin 81 mg with Plavix 75 mg, daily for 21 days then continue with aspirin monotherapy 2. Stroke order set has been placed 3. High intensity statin 4. Pregabalin dosing was increased to 100 mg twice daily for severe neuropathic pain 5. Physical and Occupational Therapy evaluations 6. Will see patient again on September 25, 2024, to discuss results of MRI brain Time with Patient: Greater than 30 (40 minutes were spent caring for this patient today including, obtaining a history, examining the patient, reviewing imaging, chart documentation, labs, placing orders and creating this note)
--- NOTE | 2024-09-24 19:52 | P.HPIM ---
History of Present Illness H&P Date: 09/23/24 Chief Complaint: Left-sided numbness/weakness 68-year-old male with past medical history of vocal cord cancer, bladder cancer who presents to the emergency department reporting left-sided numbness and left- sided weakness. Patient reports that on Thursday he started having numbness and tingling in his left arm, left leg and left side of his face. He has been dropping things. Patient is left-hand dominant but states that he feels weaker and cannot dance coach a cup. He has been calling his primary care doctor but did not receive a call back. Today his primary care called him back and told him to immediately get to the hospital. He denies history of stroke. does feel that his speech has changed a bit. Patient denies headache. He does have dilation of his right pupil. Admits that 8 weeks ago he had shingles in the right eye. He has been following up with an heavy equipment technician to states that his symptoms are improving. He is currently on acyclovir and prednisone eyedrops. Patient does not take any blood thinners. Denies any additional symptoms to include chest pain, shortness of breath, nausea, vomiting. No other alleviating, precipitating roughing factors CT of the head is reported as no acute intracranial process. I personally reviewed the CT and agree with report. CT angiography of the head and neck is reported as no flow-limiting stenosis bilateral carotid bifurcation. Normal [place]. Review of Systems REVIEW OF SYSTEMS: CONSTITUTIONAL: No fever, no malaise, no fatigue. HEENT: No recent visual problems or hearing problems. Denied any sore throat. CARDIOVASCULAR: No chest pain, orthopnea, PND, no palpitations, no syncope. PULMONARY: No shortness of breath, no cough, no hemoptysis. GASTROINTESTINAL: No diarrhea, no nausea, no vomiting, no abdominal pain. NEUROLOGICAL: No headaches, no weakness, no numbness. HEMATOLOGICAL: Denies any bleeding or petechiae. GENITOURINARY: Denies any burning micturition, frequency, or urgency. MUSCULOSKELETAL/RHEUMATOLOGICAL: Denies any joint pain, swelling, or any muscle pain. ENDOCRINE: Denies any polyuria or polydipsia. The rest of the 14-point review of systems is negative. Past Medical History Past Medical History: Cancer, GERD/Reflux, Hyperlipidemia Additional Past Medical History / Comment(s): VOCAL CORD CANCER, BLADDER CANCER. shortness of breath History of Any Multi-Drug Resistant Organisms: None Reported Past Surgical History: Bladder Surgery Additional Past Surgical History / Comment(s): VOCAL CORD SURGERY-TUMORS REMOVED ,COLONOSCOPY Past Anesthesia/Blood Transfusion Reactions: No Reported Reaction Past Psychological History: No Psychological Hx Reported Smoking Status: Former smoker Past Alcohol Use History: Occasional Past Drug Use History: None Reported - Past Family History Mother Family Medical History: No Reported History Medications and Allergies Home Medications Medication Instructions Recorded Confirmed Type Omeprazole [PriLOSEC] 20 mg PO DAILY 12/12/20 09/22/24 History Metoprolol Succinate (ER) [Toprol 25 mg PO DAILY 01/30/21 09/22/24 History Xl] Acyclovir [Zovirax] 800 mg PO BID 09/22/24 09/22/24 History Atorvastatin [Lipitor] 40 mg PO DAILY 09/22/24 09/22/24 History Ipratropium [place] [Ipratropium 2 spray NASAL TID 09/22/24 09/22/24 History [place] 0.03%] Pregabalin [Lyrica] 75 mg PO BID PRN 09/22/24 09/22/24 History Sildenafil Citrate 50 mg PO DAILY PRN 09/22/24 09/22/24 History prednisoLONE acetate [Pred Mild] 1 drop RIGHT EYE QID 09/22/24 09/22/24 History Allergies Allergy/AdvReac Type Severity Reaction Status Date / Time No Known Allergies Allergy Verified 09/22/24 17:51 Physical Exam Vitals: Vital Signs Temp Pulse Resp BP Pulse Ox 09/23/24 12:25 56 L 24 120/69 96 09/23/24 11:02 61 18 127/71 97 09/23/24 09:04 65 17 140/85 95 09/23/24 08:09 98.1 F 64 18 148/86 97 09/23/24 06:00 53 L 18 141/75 95 09/23/24 02:00 44 L 17 135/83 95 09/22/24 22:00 44 L 17 155/80 97 09/22/24 19:16 55 L 16 158/84 99 09/22/24 15:24 98.1 F 50 L 18 152/75 99 Intake and Output 09/22/24 09/23/24 09/23/24 22:59 06:59 14:59 Other: Weight 86.183 kg General: The patient is reclining in the bed. He is well-nourished, well- developed and in mild distress. HEENT: Head is atraumatic, normocephalic. Fundus not visualized. There is no scleral icterus. Mucous membranes are moist. Neck: Supple without carotid bruits Heart: Regular rate and rhythm Extremities: Without edema Neurological examination; patient is awake, alert and oriented x 3. His speech is clear. There is no dysarthria or aphasia. Cranial nerves: Pupils are equal at 3 mm and reactive. Visual pinto are full to confrontation. Extraocular movements are intact. There is no nystagmus. Facial sensation is intact. There is no facial asymmetry. Hearing is grossly intact. Uvula and palate are midline. Shoulder shrug is symmetric. Tongue protrudes midline. Motor: Strength (R/L): Water Ski Assembler 5/4. Triceps 5/4. Biceps 5/4. Hip flexors 5/4. Ankle dorsiflexors 5/5. Ankle plantar flexors 5/4. Coordination: [id number] testing is intact. There is no pronator drift. There is mild slowing of left-sided rapid alternating movements. Deep tendon reflexes: 2+/4+ throughout Results CBC & Chem 7: 09/23/24 05:14 09/23/24 05:14 Labs: Abnormal Lab Results - Last 24 Hours (Table) 09/22/24 09/23/24 Range/Units 16:05 05:14 Sodium 136 L (137-145) mmol/L Creatinine 0.63 L (0.66-1.25) mg/dL Glucose 138 H (74-99) mg/dL Total Bilirubin 1.5 H (0.2-1.3) mg/dL Creatine Kinase 52 L (55-170) U/L Assessment and Plan Assessment: 1. Sudden onset left-sided numbness/weakness; likely acute versus subacute CVA CT of the head is reported as no acute intracranial process. I personally reviewed the CT and agree with report. CT angiography of the head and neck is reported as no flow-limiting stenosis bilateral carotid bifurcation. Normal [place]. -Patient has been evaluated by neurology and recommending MRI of the brain for stroke and to rule out brain mets given history of cancer; 2D echo is ordered -Patient remains on aspirin 81 mg daily; neurology recommending to add Plavix and Lipitor -Consult PT/OT/PICKING TECH 2. Hyperlipidemia; Lipitor 40 mg daily 3. Hypertension; metoprolol 25 mg daily 4. Gastroesophageal reflux disease; continue home dose of PPI 5. History of shingles affecting the right face in July 2024; patient remains on acyclovir 800 mg twice daily; Lyrica 75 mg twice daily 6. Underlying history of coronary artery disease status post stent. History of bladder cancer status post resection History of vocal cancer status post radiation
--- NOTE | 2024-09-24 19:53 | P.PN ---
Subjective Progress Note Date: 09/24/24 68-year-old male with past medical history of vocal cord cancer, bladder cancer who presents to the emergency department reporting left-sided numbness and left- sided weakness. Patient reports that on Thursday he started having numbness and tingling in his left arm, left leg and left side of his face. He has been dropping things. Patient is left-hand dominant but states that he feels weaker and cannot reel tender a cup. He has been calling his primary care doctor but did not receive a call back. Today his primary care called him back and told him to immediately get to the hospital. He denies history of stroke. does feel that his speech has changed a bit. Patient denies headache. He does have d ilation of his right pupil. Admits that 8 weeks ago he had shingles in the right eye. He has been following up with an rolling machine operator to states that his symptoms are improving. He is currently on acyclovir and prednisone eyedrops. Patient does not take any blood thinners. Denies any additional symptoms to include chest pain, shortness of breath, nausea, vomiting. No other alleviating, precipitating roughing factors CT of the head is reported as no acute intracranial process. I personally reviewed the CT and agree with report. CT angiography of the head and neck is reported as no flow-limiting stenosis bilateral carotid bifurcation. Normal [place]. Objective - Vital Signs Vital signs: Vital Signs Temp 98.5 F 09/24/24 08:00 Pulse 79 09/24/24 08:00 Resp 16 09/24/24 08:00 BP 138/80 09/24/24 08:00 Pulse Ox 98 09/24/24 08:00 FiO2 Intake & Output 09/23/24 09/24/24 09/24/24 18:59 06:59 18:59 Intake Total 480 240 Balance 480 240 Weight 86.183 kg 83 kg Intake: Oral 480 240 Other: Voiding Method Toilet # Voids 1 - Exam General: The patient is reclining in the bed. He is well-nourished, well-developed and in mild distress. HEENT: Head is atraumatic, normocephalic. Fundus not visualized. There is no scleral icterus. Mucous membranes are moist. Neck: Supple without carotid bruits Heart: Regular rate and rhythm Extremities: Without edema Neurological examination; patient is awake, alert and oriented x 3. His speech is clear. There is no dysarthria or aphasia. Cranial nerves: Pupils are equal at 3 mm and reactive. Visual pinto are full to confrontation. Extraocular movements are intact. There is no nystagmus. Facial sensation is intact. There is no facial asymmetry. Hearing is grossly intact. Uvula and palate are midline. Shoulder shrug is symmetric. Tongue protrudes midline. Motor: Strength (R/L): Railroad Switchman 5/4. Triceps 5/4. Biceps 5/4. Hip flexors 5/4. Ankle dorsiflexors 5/5. Ankle plantar flexors 5/4. Coordination: [id number] testing is intact. There is no pronator drift. There is mild slowing of left-sided rapid alternating movements. Deep tendon reflexes: 2+/4+ throughout - Labs CBC & Chem 7: 09/23/24 05:14 09/23/24 05:14 Labs: Abnormal Lab Results - Last 24 Hours (Table) 09/23/24 Range/Units 05:14 Triglycerides 203.00 H (0.00-149.00) mg/dL VLDL Cholesterol, Calc 40.60 H (5.00-40.00) mg/dL HDL Cholesterol 38.00 L (40.00-60.00) mg/dL Assessment and Plan Assessment: 1. Sudden onset left-sided numbness/weakness; likely acute versus subacute CVA CT of the head is reported as no acute intracranial process. I personally reviewed the CT and agree with report. CT angiography of the head and neck is reported as no flow-limiting stenosis bilateral carotid bifurcation. Normal [place]. -Patient has been evaluated by neurology and recommending MRI of the brain for stroke and to rule out brain mets given history of cancer; 2D echo is ordered -Patient remains on aspirin 81 mg daily; neurology recommending to add Plavix and Lipitor -Consult PT/OT/METAL ANNEALER 2. Hyperlipidemia; Lipitor 40 mg daily 3. Hypertension; metoprolol 25 mg daily 4. Gastroesophageal reflux disease; continue home dose of PPI 5. History of shingles affecting the right face in July 2024; patient remains on acyclovir 800 mg twice daily; Lyrica 75 mg twice daily 6. Underlying history of coronary artery disease status post stent. History of bladder cancer status post resection History of vocal cancer status post radiation
[2024-09-25 09:13] LABS: Basophils # (A) 0.05 X 10*3/uL (0.00-0.10); Basophils % (A) 0.7 %; Eosinophils # (A) 0.33 X 10*3/uL (0.04-0.35); Eosinophils % (A) 4.3 %; HCT 44.5 % (39.6-50.0); HGB 15.2 g/dL (13.0-17.0); Lymphocytes # (A) 1.66 X 10*3/uL (0.90-5.00); Lymphocytes % (A) 21.8 %; MCHC 34.2 g/dL (32.0-37.0); MCV 90.6 FL (80.0-97.0); Mean Platelet Volume 10.9 FL (9.5-12.2); Monocytes # (A) 0.54 X 10*3/uL (0.20-1.00); Monocytes % (A) 7.1 %; NRBC Per 100 WBC 0 X 10*3/uL (0.00-0.01); Neutrophils # (A) 5.04 X 10*3/uL (1.80-7.70); Platelet Count 172 X 10*3/uL (140-440); RBC 4.91 X 10*6/uL (4.40-5.60); RDW 13.3 % (11.5-14.5); WBC 7.63 X 10*3/uL (4.50-10.00)
[2024-09-25 09:35] LABS: BUN/Creat Ratio 16.75 Ratio (12.00-20.00); Blood Urea Nitrogen 13.4 mg/dL (9.0-27.0); Calcium 8.8 mg/dL (8.7-10.3); Carbon Dioxide 24.5 mmol/L (21.6-31.8); Chloride 104 mmol/L (96-109); Glucose 95 mg/dL (70-110); Potassium 4.3 mmol/L (3.5-5.5); Sodium 140 mmol/L (135-145)
[2024-09-25 14:10] VITALS: BP 126/77; PULSE 51; RESP 18; TEMP 97.8
--- NOTE | 2024-09-25 15:29 | P.PN ---
Subjective Progress Note Date: 09/25/24 The patient is a 68-year-old male who was seen in neurologic follow-up on September 24, 2024, in cross coverage for Dr. Noble, in collaboration with Holly, via teleneurology. For complete history please see Dr. Noble's original consultation The chart has been reviewed. This morning, the patient reports that he is having a lot of pain. He says he has this quite severe headache on the right side of his head. He says it is very tender to touch the right side of his head. Patient does have a recent hi story of shingles involving his right face as well as right eye. He has been seeing an leno sewer who has been treating with shingles involving his eye. He is taking acyclovir and has been taking it since early July. The patient also is taking pregabalin 75 mg twice daily, for neuropathic pain. Patient reports that his pain is debilitating. For this admission, the patient came into the emergency department because of paresthesias that occurred suddenly, Thursday, while he was at work. He says that it is a painful, numbness and tingling involving his left arm, chest, back, abdomen and leg. He also notices this abnormal sensation involving his left buttock. In addition to the paresthesias, the patient reports a cold sensation. Patient says that he has difficulty picking things up and holding onto them with his left hand. The patient is left-hand dominant. He does not believe he has left-sided weakness. The patient does report that he was able to get up and walk to the bathroom without assistance. Patient is scheduled to have an MRI of the brain today. The patient is seen in neurologic follow-up on September 25, 2024. Several family members are present in the room at the time of the evaluation. Results of the patient's MRI brain are discussed with the patient and his family. All questions are answered to the patient and family's satisfaction. Objective - Vital Signs Vital signs: Vital Signs Temp 98.2 F 09/25/24 06:58 Pulse 53 L 09/25/24 06:58 Resp 16 09/25/24 06:58 BP 139/77 09/25/24 06:58 Pulse Ox 97 09/25/24 06:58 FiO2 Intake & Output 09/24/24 09/25/24 09/25/24 18:59 06:59 18:59 Intake Total 1800 120 Balance 1800 120 Weight 82.9 kg Intake: Oral 1800 120 Other: # Voids 5 1 # Bowel Movements 1 - Exam General: The patient is reclining in the bed. He is well-nourished, well- developed and in mild distress. HEENT: Head is atraumatic, normocephalic. Fundus not visualized. There is no scleral icterus. Mucous membranes are moist. Extremities: Without edema Neurological examination Mental status: The patient is awake, alert and oriented x 3. His speech is clear. There is no dysarthria or aphasia. Cranial nerves: 2-12 grossly intact - Labs CBC & Chem 7: 09/25/24 05:09 09/25/24 05:09 Assessment and Plan Assessment: 1. Sudden onset left-sided paresthesias and weakness consistent with the patient's MRI reporting an acute right thalamic infarct. 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 Recent history of shingles, with postherpetic neuralgia 3. History of vocal cord cancer 4. History of bladder cancer Plan: 1. The patient's pregabalin dosing was changed to 75 mg 3 times daily. The order was attempted to be included for a dose of 75 mg in the morning and 75 mg, 2 capsules at bedtime. 2. The patient was advised of the results of his MRI and the fact that this area of the brain is well-known to cause pain 3. The patient is advised add Plavix 75 mg to his daily dose of aspirin 81 mg, for 21 days. After 21 days he is advised to discontinue the aspirin and continue taking Plavix. 4. The patient is given a business card for Dr. Patsy Taveras (neurologist) for follow-up regarding stroke and neuropathic pain 5. Patient is advised to follow-up with his family doctor following discharge. He is advised to not return to work until seen by his family doctor 6. 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 7. The patient is neurologically stable for discharge Time with Patient: Greater than 30 (40 minutes were spent caring for this patient today including, obtaining a history, examining the patient, reviewing imaging, chart documentation, labs, discussing imaging results with patient and family, prognosis and providing recommendations for further treatment)
[2024-09-25] MEDS ORDERED: PREGABALIN 75 MG CAP PO SCH (16:00)
== END 2024-09-25 14:55 | disposition home or self-care (01) ==
LOC: EC 15:15 → 3SCARD 19:06 → 5NMEDONC 09-23 11:16 → UNDODISOB 09-23 13:10
PROVIDERS: ADMIT Internal Medicine; ATTEND Internal Medicine
DX: R53.1 Weakness (principal); R20.0 Anesthesia of skin; R20.2 Paresthesia of skin; B02.30 Zoster ocular disease, unspecified; B02.29 Other postherpetic nervous system involvement; E78.5 Hyperlipidemia, unspecified; I10 Essential (primary) hypertension; I25.10 Atherosclerotic heart disease of native coronary artery without angina pectoris; K21.9 Gastro-esophageal reflux disease without esophagitis; Z79.82 Long term (current) use of aspirin; Z79.899 Other long term (current) drug therapy; Z85.21 Personal history of malignant neoplasm of larynx; Z85.51 Personal history of malignant neoplasm of bladder; Z87.891 Personal history of nicotine dependence; Z95.5 Presence of coronary angioplasty implant and graft; Z92.3 Personal history of irradiation
CPT/HCPCS: 96372 ×3; 99285; 36415; 93005; 93306; 97161; 80061; 80053; 80048 ×2; 84443; 82550; 84484; 85025 ×3; 85610; 85730; 71046; 70496; 70450; 70498; 70553; G0378 ×5; J1644 ×3; Q9967; A9585

== ENCOUNTER → 2024-10-28 | Outpatient (CLI) | payer MEDICARE, OTHER ==
[2024-10-28 16:51] LABS: Partial Thromboplastin Time 24.6 sec (22.0-30.0); Prothrombin Time 10.7 sec (10.0-12.5)
[2024-10-29 04:04] LABS: Creatine Kinase 29 U/L (35-257); T4, Free (Free Thyroxine) 1.55 ng/dL (0.80-1.80)
[2024-10-29 04:13] LABS: Protein, Total 6.8 g/dL (6.2-8.2)
[2024-10-29 05:12] LABS: Cardiolipin Ab IgG Interp Negative (Negative); Cardiolipin Ab IgM Interp Negative (Negative); Cardiolipin IgA Antibody <2.0 U/mL; Cardiolipin IgM Antibody <1.5 U/mL
[2024-10-31 14:01] LABS: APTT 38 Sec(s) (<43); Dilute Russell Viper Venom 36 Sec(s) (<44)
== END | disposition home or self-care (01) ==
LOC: LABWHC1 16:00
PROVIDERS: ATTEND Psychiatry & Neurology Neurology
DX: I63.9 Cerebral infarction, unspecified (principal); G62.9 Polyneuropathy, unspecified
CPT/HCPCS: 36415; 82550; 82607; 82747; 83036; 83090; 84165; 84207; 84439; 84443; 85610; 85613; 85652; 85730; 86038; 86147; 86618